=== PATIENT | male | born 1965 | race Caucasian/White ===

== ENCOUNTER 2016-08-20 08:05 | Day surgery (SDC) | payer OTHER ==
[2016-08-17 12:17] VITALS: BMI 32.1
[2016-08-20] MEDS ORDERED: LEVOFLOXACIN 500 MG PREMIX BAG IVPB ONE (11:52)
[2016-08-20] MEDS ORDERED: DEXAMETHASONE SOD PHOSPHATE 4 MG/1 ML VIAL ONE (11:54)
[2016-08-20] MEDS ORDERED: KETOROLAC TROMETHAMINE 30 MG/1 ML VIAL ONE (11:54)
[2016-08-20] MEDS ORDERED: MIDAZOLAM HCL 2 MG/2 ML SINGLE DOSE VIAL ONE ×3 (11:56→12:05)
--- NOTE | 2016-08-20 12:28 | OP ---
Operative Note - Note: Operative Date: 08/20/16 Pre-Operative Diagnosis: left renal stone Operation: left eswl Findings: 6 mm left renal stone Post-Operative Diagnosis: Same as Pre-op Surgeon: Jacinto Carl Anesthesia: General Operative Report Dictated: Yes
[2016-08-20] MEDS ORDERED: oxyCODONE HCL 5 MG TABLET PO PRN (12:30)
[2016-08-20] MEDS ORDERED: PROMETHAZINE HCL 25 MG/1 ML VIAL IVPUSH PRN (12:30)
[2016-08-20] MEDS ORDERED: ONDANSETRON 4 MG/2 ML VIAL IVPUSH PRN (12:30)
[2016-08-20 14:13] VITALS: TEMP 98
[2016-08-20 15:32] VITALS: PULSE 60
[2016-08-20 15:34] VITALS: BP 122/78
--- NOTE | 2016-08-21 11:33 | OP ---
DATE OF OPERATION: 08/20/2016 PREOPERATIVE DIAGNOSIS: Left renal stone. POSTOPERATIVE DIAGNOSIS: Left renal stone. PROCEDURE: Left extracorporeal shock-wave lithotripsy. ATTENDING: Nubia Lau MD ANESTHESIA: General. DESCRIPTION OF PROCEDURE: The patient was brought in the operating room and placed in a supine position on the operating room table. Fluoroscopy and ultrasonography were performed. A 6-mm left mid pole stone was identified. General anesthesia and preoperative antibiotics were then administered. Extracorporeal shock-wave lithotripsy was administered at this point. Then 2500 impulses at 17 J of power were administered to the stone. Excellent fragmentation was noted under real time ultrasonography and fluoroscopy. There were no complications noted. DISPOSITION: To the recovery room. NUBIA LAU M.D. [id number]
== END 2016-08-20 15:30 | disposition home or self-care (01) ==
LOC: JASU-SURG 08:05
PROVIDERS: ATTEND Urology
PROC: 0TF4XZZ Fragmentation in Left Kidney Pelvis, External Approach (ICD-10-PCS; principal; 2016-08-20 10:30)
DX: N20.0 Calculus of kidney (principal)
CPT/HCPCS: 94760

== ENCOUNTER 2023-09-20 20:31 | Emergency (ER) | payer OTHER ==
[2023-09-20 20:37] VITALS: BP 166/92; PULSE 71; RESP 20; TEMP 97.9; BMI 30.2
[2023-09-20] MEDS ORDERED: INDOMETHACIN 50 MG CAPSULE PO ONE (21:05)
== END 2023-09-20 21:15 | disposition home or self-care (01) ==
LOC: JERFT 20:31 → JER 20:31 → JERFT 21:15
DX: M25.522 Pain in left elbow (principal); M10.9 Gout, unspecified
CPT/HCPCS: 99283-25